=== PATIENT | female | born 1950 | race Caucasian/White ===

== ENCOUNTER 2017-03-31 09:05 | Emergency (ER) | payer MEDICARE, OTHER ==
[~2017-03-31] VITALS: Ht 160 cm; Wt 65.9 kg
[~2017-03-31 09:05] MED LIST: ASPI325T32; BENA40TA41; CEPH-443; METF500T4; OXYC-281; SIMV40TA3; SITA100T8; TRIA0.25
[2017-03-31 09:08] VITALS: Ht 160 cm; Wt 65.9 kg
[2017-03-31] MEDS ORDERED: SOD CHLORIDE 0.9% 1,000 ML IV STA (09:29)
[2017-03-31 09:55] LABS: BASOPHILS % 0.4 % (0.0-2.0); EOSINOPHILS # 0.2 10^3/ul (0.0-0.5); EOSINOPHILS % 3.4 % (0.0-7.0); HEMOGLOBIN 12.1 g/dl (12.0-16.0); LYMPHOCYTES % 15.5 % (15.0-51.0); MEAN CORPUSCULAR HEMOGLOBIN 22.9 pg (29.0-33.0); MEAN CORPUSCULAR VOLUME 73.9 fl (82.0-101.0); MEAN PLATELET VOLUME 9.5 fl (7.4-10.4); MONOCYTE # 0.5 10^3/ul (0.3-0.9); MONOCYTES % 7.9 % (0.0-11.0); NEUTROPHIL # 4.9 10^3/ul (1.6-7.5); NEUTROPHILS % 72.2 % (39.0-77.0); PLATELET COUNT 218 10^3/UL (140-415); RED BLOOD COUNT 5.28 10^6/ul (4.20-5.40); RED CELL DISTRIBUTION WIDTH 15.7 % (11.5-14.5); WHITE BLOOD COUNT 6.7 10^3/ul (4.8-10.8)
[2017-03-31 10:22] LABS: ANION GAP 15 (8-16); BLOOD UREA NITROGEN 19 mg/dl (7-20); CALCIUM 10.1 mg/dl (8.4-10.2); CARBON DIOXIDE 25 mmol/L (21-31); CHLORIDE 105 mmol/L (97-110); CREATININE 0.93 mg/dl (0.44-1.00); GLUCOSE 169 mg/dl (70-220); POTASSIUM 4.2 mmol/L (3.5-5.1); SODIUM 141 mmol/L (135-144)
[2017-03-31] MEDS ORDERED: KETOROLAC 30 MG INJ IV STA (10:22)
[2017-03-31 10:34] LABS: TROPONIN-I < 0.012 ng/ml (0.00-0.12)
[2017-03-31 12:03] LABS: ADD UMIC YES; UR ASCORBIC ACID 40 mg/dL (NEGATIVE); UR BILIRUBIN (Dip) NEGATIVE (NEGATIVE); UR BLOOD (Dip) NEGATIVE (NEGATIVE); UR CLARITY CLOUDY (CLEAR); UR COLOR AMBER (YELLOW); UR GLUCOSE (Dip) 3+ mg/dL (NEGATIVE); UR KETONES (Dip) NEGATIVE (NEGATIVE); UR LEUKOCYTE ESTERASE (Dip) NEGATIVE Leu/ul (NEGATIVE); UR NITRITE (Dip) NEGATIVE (NEGATIVE); UR RBC 1 /HPF (0-5); UR SPECIFIC GRAVITY (Dip) 1.026 (1.003-1.030); UR SQUAMOUS EPITHELIAL CELL FEW /HPF (FEW); UR TOTAL PROTEIN (Dip) NEGATIVE (NEGATIVE); UR UROBILINOGEN (Dip) NEGATIVE (NEGATIVE)
--- NOTE | 2017-03-31 12:04 | ERD ---
ER Documentation Chief Complaint Chief Complaint FAINTED AFTER HAVING BLOOD DRAWN, BACK PAIN S/P FALL. HPI This is a 66-year-old female who presents to the emergency room after a syncopal episode at her primary care physician's office. I got a call from her primary care physician, Dr. arias who says this patient fainted when she walked into his office. This patient was caught by family member. This patient has a daughter was at bedside was also physician and states that the patient was fasting today to get routine blood work drawn. She is a diabetic, she is taking chronic opiates for chronic pain. This patient denies any chest pain, palpitations, shortness of breath. She is complaining of back pain localized to the back pain to the lower back and describes as achy pain sometimes worse with movement of her right and left lower extremity. The patient denies any other trauma at this time ROS All systems reviewed and are negative except as per history of present illness. Medications Home Meds Reported Medications Simvastatin (Simvastatin) 40 Mg Tablet 04/28/10 Metformin* (Glucophage*) 500 Mg Tab 04/28/10 Sitagliptin* (Januvia*) 100 Mg Tablet 04/28/10 Cephalexin* (Keflex*) 500 Mg Capsule 04/24/10 Oxycodone Hcl-Acetaminophen* (Percocet*) 1 Tab Tablet 04/24/10 Aspirin* (Aspirin* EC) 325 Mg Tablet. 04/24/10 Benazepril Hcl* (Benazepril Hcl*) 40 Mg Tablet 04/24/10 Triazolam* (Halcion*) 0.25 Mg Tablet 04/24/10 Allergies Allergies: Coded Allergies: No Known Allergies (Verified Allergy, Mild, 04/24/10) PMhx/Soc History of Surgery: Yes (CABG 04/16, CSECTION x2) Anesthesia Reaction: No Hx Neurological Disorder: No Hx Respiratory Disorders: Yes (PE) Hx Cardiac Disorders: Yes (HX CABG) Hx Psychiatric Problems: No Hx Miscellaneous Medical Probl: Yes (cancer with radiation treatment completed , chronic back pain) Hx Alcohol Use: No Hx Substance Use: No Hx Tobacco Use: No Smoking Status: Never smoker Physical Exam Vitals Vital Signs Date Time Temp Pulse Resp B/P Pulse Ox O2 Delivery O2 Flow Rate FiO2 03/31/17 11:28 66 15 111/59 99 Room Air 03/31/17 09:08 97.6 49 16 98 Physical Exam INITIAL VITAL SIGNS: Reviewed by me GENERAL: The patient is well developed and appropriate for usual state of health in no apparent distress HEENT: Pupils equal, round, and reactive to light. EOMI. There is no scleral icterus. NECK: C-spine is soft and supple, there is no meningismus. There is no cervical lymphadenopathy. LUNGS: Clear to auscultation bilaterally. There are no rales, wheezes or rhonchi. HEART: Regular rate and rhythm, no murmurs, clicks, rubs or gallops. ABDOMEN: Soft, non-tender, non-distended. There are bowel sounds in all four quadrants. No rebound or guarding. EXTREMITIES: There is no peripheral cyanosis or edema. No focal swelling or erythema. NEUROLOGICAL: The patient moves all four extremities with 5/5 strength. Cranial nerves II - XII are intact. Normal gait. Alert and oriented SKIN: There is no apparent rash or petechiae. HEME/LYMPHATIC: There is no evidence of excessive bruising or lymphedema. PSYCHIATRIC: The patient does not appear anxious or depressed. Result Diagram: 03/31/1740 03/31/17939 Results 24 hrs Laboratory Tests Test 03/31/17 09:40 White Blood Count 6.710^3/ul Red Blood Count 5.2810^6/ul Hemoglobin 12.1g/dl Hematocrit 39.0% Mean Corpuscular Volume 73.9fl Mean Corpuscular Hemoglobin 22.9pg Mean Corpuscular Hemoglobin Concent 31.0g/dl Red Cell Distribution Width 15.7% Platelet Count 10371^3/UL Mean Platelet Volume 9.5fl Neutrophils % 72.2% Lymphocytes % 15.5% Monocytes % 7.9% Eosinophils % 3.4% Basophils % 0.4% Nucleated Red Blood Cells % 0.0/100WBC Neutrophils # 4.910^3/ul Lymphocytes # 1.010^3/ul Monocytes # 0.510^3/ul Eosinophils # 0.210^3/ul Basophils # 0.010^3/ul Nucleated Red Blood Cells # 0.010^3/ul Sodium Level 141mmol/L Potassium Level 4.2mmol/L Chloride Level 105mmol/L Carbon Dioxide Level 25mmol/L Anion Gap 15 Blood Urea Nitrogen 19mg/dl Creatinine 0.93mg/dl Glucose Level 169mg/dl Calcium Level 10.1mg/dl Troponin I < 0.012ng/ml Current Medications Medications (Trade) Dose Ordered Sig/Cortez Route PRN Reason Start Time Stop Time Status Last Admin Dose Admin Sodium Chloride (NS) 1,000 ml @ 1,000 mls/hr Q1H STAT IV 03/31/17 09:29 03/31/17 10:28 DC 03/31/17 10:06 Ketorolac Tromethamine (Toradol) 30 mg ONCE STAT IV 03/31/17 10:22 03/31/17 10:23 DC 03/31/17 10:59 Procedures/MDM EKG: Rate/Rhythm: [Normal Sinus Rhythm] QRS, ST, T-waves: [No changes consistent w/ acute ischemia] Impression: [No evidence of ischemia or arrhythmia] Chest X-ray 1V Interpreted by me: Soft Tissue: No acute abnormalities Bones: No acute abnormalities Mediastinum/Cardiac Silhouette/Lungs: [No acute abnormalities] X-ray LS-Spine 3V Interpreted by me: Bones: L1 fracture Joints: [No dislocation] Foreign body: [None] This is a 66-year-old female who presents to the emergency room for evaluation of a syncopal episode. This patient was hemodynamically stable on my examination. She was hypotensive prior to arrival was given 1 L fluid. Her blood pressure on my initial evaluation was 110 systolic. The patient did have lab work drawn including a troponin which is negative. Chest x-ray is clear, I did obtain an x-ray of the lumbar spine which shows an L1 fracture of undetermined age. Given this patient's syncope, new complaint of back pain and symptoms at this time I do feel this is an acute L1 fracture. The vertebral body is not significantly reduced in height. This patient was given Toradol with relief of her pain and will be discharged home at this time with a referral for outpatient neurosurgery for possible kyphoplasty. Departure Diagnosis: Primary Impression: Syncope Additional Impression: Compression fracture of L1 lumbar vertebra Condition: Stable HUSAM STEEN DO Mar 31, 2017 12:04
[2017-03-31 13:06] VITALS: BP 111/70; PULSE 65; RESP 16
--- NOTE | 2017-03-31 15:16 | RADRPT ---
PROCEDURE: XR Chest. CLINICAL INDICATION: Chest pain. TECHNIQUE: Single frontal view. COMPARISON: 04/14/2010. FINDINGS: The lungs are clear. The heart size is normal. There is calcification in the aorta consistent with atherosclerosis. Are s ternal wires and mediastinal clips. There is no pleural effusion. There is no pneumothorax. IMPRESSION: 1. Previous CABG. 2. Atherosclerosis. 3. Clear lungs. RPTAT: QQ .Toro Lopez MD, MD Date Time Electronically viewed and signed by .Toro Lopez MD, MD on 03/31/2017 15:15 .R/
--- NOTE | 2017-03-31 15:29 | RADRPT ---
PROCEDURE: XR Lumbar Spine. CLINICAL INDICATION: Trauma due to a fall. Back pain. TECHNIQUE: Three views. AP, lateral and cone-down lateral view of the lumbar spine were obtained. COMPARISON: No prior studies are available for comparison. FINDINGS: There is a fracture of the L1 vertebral body with approximately 50% loss of height. This may be acut e. There is no other fracture. Alignment is normal. There is no lytic or blastic lesion. There are degenerative changes with small osteophytes throughout. There is disc space narrowing at L 3-4 and L4-5. Vascular calcifications are present consistent with atherosclerosis. IMPRESSION: 1. Fracture of L1 vertebral body which may be acute. Correlation with CT scan should be considered. 2. Degenerative changes. 3. Atherosclerosis. RPTAT: QQ .Toro Lopez MD, Date Time Electronically viewed and signed by .Toro Lopez MD, on 03/31/2017 15:29 .R/
== END 2017-03-31 13:08 | disposition home or self-care (01) ==
LOC: E/R 09:05
DX: R55 Syncope and collapse (principal); S32.019A Unspecified fracture of first lumbar vertebra, initial encounter for closed fracture; W18.39XA Other fall on same level, initial encounter; Y92.9 Unspecified place or not applicable; Z79.82 Long term (current) use of aspirin; Z79.84 Long term (current) use of oral hypoglycemic drugs; Z95.1 Presence of aortocoronary bypass graft
CPT/HCPCS: 36415; 71010; 72100; 80048; 81001; 84484; 85025; 93005; 96374; 99285; J1885; J7030